=== PATIENT | male | born 1945 | race Caucasian/White ===

== ENCOUNTER 2016-09-27 09:58 | Emergency (ER) | payer MEDICARE, BC, MEDICAID ==
--- OUTSIDE RECORDS SUMMARY | 2016-09-27 10:42 | XMS REPORT | Continuity of Care Document ---
:1945 Author Organization [facility] ([facility]) Address [address] [place] [address] Phone [phone] Care Team Providers Name Role Phone Unavailable Primary Care Provider Unavailable Source Comments This disclosure is being made pursuant to the Care Everywhere program, applicable federal and state laws, and may not contain all informaitonavailable regarding this patient.[facility] ([facility]) Active Allergies and Adverse Reactions Not on File Current Medications Not on file Active Problems Not on file Social History Tobacco Use Types Packs/Day Years Used Date Never Assessed Plan of Care Health Maintenance Due Date Last Done Comments HCV Screening 1945 Hepatitis B Vaccine (1 of 3 - Primary Series) 1945 Tdap Vaccine 1956 Lipid Disorder Screening 1963 Td Vaccine 1963 Colonoscopy 1995 Prostate Cancer Screening 1995 Zoster Vaccine 2005 Pneumococcal Vaccine (1 of 2 - PCV13) 2010 Influenza Vaccine: Seasonal (#1) 12/10/2015 Results from Last 3 Months Not on file
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
[2016-09-27 13:57] VITALS: BP 136/56
== END 2016-09-27 13:53 ==
LOC: ER 09:58
PROC: 0JQ10ZZ Repair Face Subcutaneous Tissue and Fascia, Open Approach (ICD-10-PCS; principal; 2016-09-27)
DX: S01.81XA Laceration without foreign body of other part of head, initial encounter (principal); W19.XXXA Unspecified fall, initial encounter; Y92.128 Other place in nursing home as the place of occurrence of the external cause; E11.9 Type 2 diabetes mellitus without complications; Z79.4 Long term (current) use of insulin; Z87.440 Personal history of urinary (tract) infections; E78.5 Hyperlipidemia, unspecified; F32.9 Major depressive disorder, single episode, unspecified; F41.9 Anxiety disorder, unspecified; I50.9 Heart failure, unspecified; I10 Essential (primary) hypertension; F03.90 Unspecified dementia, unspecified severity, without behavioral disturbance, psychotic disturbance, mood disturbance, and anxiety

== ENCOUNTER 2017-01-30 08:47 | Emergency (ER) | payer MEDICARE, BC, MEDICAID ==
--- NOTE | 2017-01-30 08:56 | ERNOTE ---
Syncope ER HPI Stated Complaint: NOT FEELING WELL Time Seen by Provider: 01/30/17 08:47 Source: group home records Exam Limitations: dementia Immunizations: IMMUNIZATION HX Immunizations Up to Date Yes History of Influenza Vaccine Yes Hx Pneumococcal Vaccination Yes Allergies/Adverse Reactions: Allergies levofloxacin [From Levaquin] Adverse Reaction (Mild, Verified 09/27/16 10:05) Other Home Medications: HOME MEDICATIONS Acetaminophen [Tylenol] 650 mg PO Q6H PRN 03/01/13 [Last Taken Unknown] Bisacodyl [Dulcolax] 10 mg PO DAILY PRN 03/01/13 [Last Taken Unknown] Enalapril Maleate 10 mg PO DAILY 03/01/13 [Last Taken 03/01/15 07:30] Folic Acid 1 mg PO DAILY 03/01/13 [Last Taken 03/01/15 07:30] Furosemide [Lasix] 40 mg PO BID 03/01/13 [Last Taken 03/01/15 16:30] Metoprolol Succinate [Toprol Xl] 25 mg PO BID 03/01/13 [Last Taken 03/01/15 16: 30] Multivitamins [Multivitamin Moustapha] 1 cap PO DAILY 03/01/13 [Last Taken 07:30] Sennosides [Senna] 17.2 mg PO BID 03/01/13 [Last Taken Unknown] Simvastatin [Zocor] 20 mg PO HS 03/01/13 [Last Taken Unknown] glipiZIDE [Glucotrol] 10 mg PO DAILY 03/01/13 [Last Taken 03/01/15 07:00] LORazepam [Ativan] 1 mg PO QID PRN 03/01/15 [Last Taken Unknown] Magnesium Hydroxide [Milk Of Magnesia] 10 ml PO DAILY PRN 03/01/15 [Last Taken Unknown] QUEtiapine FUMARATE [Seroquel] 100 mg PO TID 03/01/15 [Last Taken Unknown] Methylcellulose [Fiber] 1,250 mg PO BID 09/26/15 [Last Taken Unknown] Potassium Chloride [Klor-Con 10] 10 meq PO DAILY 09/26/15 [Last Taken Unknown] Blood Sugar Diagnostic [Glucose Test Strip] 1 each [facility] #1 strip 09/29/15 [ Last Taken Unknown] Divalproex Sodium [Depakote] 250 mg PO TID 09/27/16 [Last Taken Unknown] FLUoxetine HCL [Prozac] 10 mg PO HS 09/27/16 [Last Taken Unknown] Insulin Aspart [Novolog] 1 units SC ACHS 09/27/16 [Last Taken Unknown] lamoTRIgine [Lamictal] 150 mg PO DAILY 09/27/16 [Last Taken Unknown] metFORMIN HCL [Glumetza] 1,000 mg PO BID 09/27/16 [Last Taken Unknown] Dulcolax Suppository 10 mg RC DAILY PRN 01/30/17 [Last Taken Unknown] LORazepam 0.5 mg PO TID 01/30/17 [Last Taken Unknown] Vitamin D3 2,000 unit PO DAILY 01/30/17 [Last Taken Unknown] - History of Present Illness Narrative: Patient is brought in by EMS from the care center for syncopal episode. The patient has severe intellectual disability and is unable to give a history, only answers yes and no. Per group home he was sitting at breakfast being fed when he became unresponsive, no choking, no seizure activity reported. Date (Duration): 01/30/17 Time (Timing): 08:00 Prior Episodes: Present: remote history - one year ago, no testing done at that time Symptoms prior to episode: Present: unknown Activity at time of episode: Present: sitting Character of event: Present: brief (seconds), became unresponsive. Absent: seizure activity observed Location of Injury: Present: none Current Symptoms: Present: back to normal Prior Treament: Reports: similar symptoms before. Denies: recently seen Review of Systems - Narrative Narrative: unable to obtain - Patient's Past Medical History Patient History - Medical: Anxiety, Diabetes Type 2 Insulin Dependent, Dementia , Depression, Osteoarthritis, Renal Failure, UTI'S, Other Patient History - Cardiac/Respiratory: CHF, Hypertension, Hyperlipidemia Patient History - Cancer: No Hx of Cancer Patient History - Surgical Procedures: Other Patient History - Other: None - Family History Mother Family History - Medical: , Other Family History - Cardiac/Respiratory: No pertinent hx Father Family History - Medical: , History Unknown Family History - Cardiac/Respiratory: History Unknown - Social History Living Situations: group home Abuse History: No History of abuse Psych History: Hx of Anxiety, Hx of Depression Alcohol Use: none Drug Use: none - Immunizations Immunizations Up to Date: Yes Hx Pneumococcal Vaccination: Yes History of Influenza Vaccine: Yes Physical Exam - Physical Exam General Appearance: Present: wd/wn, alert, no apparent distress Head Exam: Present: normal inspection, no evidence of injury Eye Exam: Normal inspection: bilateral, PERRL: bilateral Ears, Nose, Throat: Present: normal pharynx Neck: Present: normal inspection, nontender, supple Respiratory: Present: no respiratory distress, normal breath sounds, chest nontender, lungs clear, other - red skin homer over sternum (sternal rub?) no ecchymosis Cardiovascular/Chest: Present: regular rate, rhythm, no murmur, normal peripheral pulses Gastrointestinal/Abdominal: Present: nontender, nondistended, soft Extremity Exam: Present: normal inspection, no edema Neurological Exam: Present: alert, no motor/sensory deficits - grossly normal ( limited exam due mental disability) Skin Exam: Present: normal color, warm/dry ED Progress - Results and Orders Patient's Lab Results:: I have reviewed the patient's lab results. - Vital Signs Patient's Vital Signs:: I have reviewed the patient's vital signs. Vital Signs: Vital Signs 01/30/17 08:52 Temperature 36.9 C Pulse Rate 71 Respiratory 17 Rate Blood Pressure 112/52 O2 Sat by Pulse 94 Oximetry - EKG EKG: NSR, unchanged from - 05/2015, other - poor R progression, no accute changes EKG read: Interp. by me - Progress/Reassessment Chief Complaint: Syncopal Episode Progress Note-Subjective: 01/30/17 10:35 reviewed previous culture 02/2016 Ecoli, multi resistent, sensitive to nitrofurantoin Departure Clinical Impression: UTI (urinary tract infection), bacterial, Syncope and collapse - Departure [facility]position: [facility] Condition: Fair Referrals: Malachi Sanders MD [Primary Care Provider] -
[2017-01-30 09:19] LABS: Hematocrit 30.3 % (42.0-52.0); Hemoglobin 10.4 gm/dL (13.5-18.0); Mean Cell Volume 91.3 fl (78-100); Mean Corpuscular Hemoglobin 31.3 pg (27-31); Mean Corpuscular Hgb Conc 34.3 g/dl (32-36); Mean Platelet Volume 9.1 fl (6.0-9.5); Neutrophil # 5.6 K/mm3 (1.3-6.0); Neutrophil % 68.3 % (42-75.0); Platelet Count 257 K/mm3 (150-450); Red Blood Count 3.32 M/mm3 (4.7-6.0); Red Cell Distribution Width 13.1 % (11.5-14.0); White Blood Count 8.2 K/mm3 (4.0-10.5)
[2017-01-30 09:39] LABS: ALT 10 U/L (19-67); AST 6 U/L (0-48); Albumin * 3.1 gm/dl (3.4-5.0); Alkaline Phosphatase * 71 U/L (50-170); Anion Gap 11.2 mmol/L (6.8-13.8); BUN/Creatinine Ratio 13.4 (9.0-21.6); Bilirubin, Total 0.4 mg/dL (0.0-1.1); Blood Urea Nitrogen 22 mg/dL (6-23); Ca. Corrected For Albumin 9.1 mg/dL (8.4-10.2); Calcium * 8.7 mg/dL (7.9-10.9); Carbon Dioxide 31.9 mmol/L (24-32.6); Chloride 102 mmol/L (97-106); Glucose * 111 mg/dL (70-110); Potassium 4.1 mmol/L (3.4-4.6); Sodium 141 mmol/L (132-142); Total Protein 6.9 gm/dL (6.2-8.2); Troponin I Less than 0.017 ng/ml (0.00-0.10)
[2017-01-30 10:04] LABS: Urine Bilirubin Negative (NEGATIVE); Urine Ketone Negative (NEGATIVE); Urine Nitrite Negative (NEGATIVE); Urine Protein 15 mg/dL (NEGATIVE); Urine Urobilinogen Normal (NORMAL)
[2017-01-30 10:14] LABS: Urine Appearance Cloudy; Urine Bacteria 4+; Urine Blood 10 /ul (NEGATIVE); Urine Color Yellow; Urine RBC 0-5 /hpf (0-5)
[2017-01-30] MEDS ORDERED: NITROFURANTOIN/NITROFURAN MAC 100 MG CAPSULE PO ONE (10:22)
[2017-01-30] MEDS ORDERED: NITROFURANTOIN/NITROFURAN MAC 100 MG CAPSULE ONE (10:28)
[2017-01-30 11:44] VITALS: BP 113/51
== END 2017-01-30 11:52 ==
LOC: ER 08:47
PROC: 0T9B7ZZ Drainage of Bladder, Via Natural or Artificial Opening (ICD-10-PCS; principal; 2017-01-30)
DX: N39.0 Urinary tract infection, site not specified (principal); B96.89 Other specified bacterial agents as the cause of diseases classified elsewhere; R55 Syncope and collapse; Z87.440 Personal history of urinary (tract) infections; E11.9 Type 2 diabetes mellitus without complications; Z79.4 Long term (current) use of insulin

== ENCOUNTER 2017-02-14 09:39 | Emergency (ER) | payer MEDICARE, BC, MEDICAID ==
--- NOTE | 2017-02-14 10:30 | ERNOTE ---
Syncope ER HPI Date of Service: 02/14/17 Stated Complaint: ALT MENTAL STATUS Time Seen by Provider: 02/14/17 10:18 Source: other - Nursing report to ED nurse Immunizations: IMMUNIZATION HX Immunizations Up to Date Yes History of Influenza Vaccine More Information Required Hx Pneumococcal Vaccination More Information Required Allergies/Adverse Reactions: Allergies levofloxacin [From Levaquin] Adverse Reaction (Mild, Verified 02/14/17 09:46) Other Home Medications: HOME MEDICATIONS Acetaminophen [Tylenol] 650 mg PO Q6H PRN 03/01/13 [Last Taken Unknown] Bisacodyl [Dulcolax] 10 mg PO DAILY PRN 03/01/13 [Last Taken Unknown] Enalapril Maleate 10 mg PO DAILY 03/01/13 [Last Taken 03/01/15 07:30] Folic Acid 1 mg PO DAILY 03/01/13 [Last Taken 03/01/15 07:30] Furosemide [Lasix] 40 mg PO BID 03/01/13 [Last Taken 03/01/15 16:30] Metoprolol Succinate [Toprol Xl] 25 mg PO BID 03/01/13 [Last Taken 03/01/15 16: 30] Multivitamins [Multivitamin Moustapha] 1 cap PO DAILY 03/01/13 [Last Taken 07:30] Sennosides [Senna] 17.2 mg PO BID 03/01/13 [Last Taken Unknown] Simvastatin [Zocor] 20 mg PO HS 03/01/13 [Last Taken Unknown] glipiZIDE [Glucotrol] 10 mg PO DAILY 03/01/13 [Last Taken 03/01/15 07:00] LORazepam [Ativan] 1 mg PO QID PRN 03/01/15 [Last Taken Unknown] Magnesium Hydroxide [Milk Of Magnesia] 10 ml PO DAILY PRN 03/01/15 [Last Taken Unknown] QUEtiapine FUMARATE [Seroquel] 100 mg PO TID 03/01/15 [Last Taken Unknown] Methylcellulose [Fiber] 1,250 mg PO BID 09/26/15 [Last Taken Unknown] Potassium Chloride [Klor-Con 10] 10 meq PO DAILY 09/26/15 [Last Taken Unknown] Blood Sugar Diagnostic [Glucose Test Strip] 1 each [facility] #1 strip 09/29/15 [ Last Taken Unknown] Divalproex Sodium [Depakote] 250 mg PO TID 09/27/16 [Last Taken Unknown] FLUoxetine HCL [Prozac] 10 mg PO HS 09/27/16 [Last Taken Unknown] Insulin Aspart [Novolog] 1 units SC ACHS 09/27/16 [Last Taken Unknown] lamoTRIgine [Lamictal] 150 mg PO DAILY 09/27/16 [Last Taken Unknown] metFORMIN HCL [Glumetza] 1,000 mg PO BID 09/27/16 [Last Taken Unknown] Dulcolax Suppository 10 mg RC DAILY PRN 01/30/17 [Last Taken Unknown] LORazepam 0.5 mg PO TID 01/30/17 [Last Taken Unknown] Vitamin D3 2,000 unit PO DAILY 01/30/17 [Last Taken Unknown] - History of Present Illness Narrative: According to communication from [facility] nurse to ED nurse patient had a brief episode of being unresponsive for a few seconds. BP was low. On arrival he was alert. Patient can only tell me he does not have any pain when questioned. Review of Systems - Narrative Narrative: Unable to effectively communicate due to clinical status - Patient's Past Medical History Patient History - Medical: Anxiety, Diabetes Type 2 Insulin Dependent, Dementia , Depression, Osteoarthritis, Renal Failure, UTI'S, Other Patient History - Cardiac/Respiratory: CHF, Hypertension, Hyperlipidemia Patient History - Cancer: No Hx of Cancer Patient History - Surgical Procedures: Other Patient History - Other: None - Family History Mother Family History - Medical: , Other Family History - Cardiac/Respiratory: No pertinent hx Father Family History - Medical: , History Unknown Family History - Cardiac/Respiratory: History Unknown - Social History Living Situations: care home Abuse History: No History of abuse Psych History: Hx of Anxiety, Hx of Depression Smoking Status: Unknown if ever smoked Alcohol Use: none Drug Use: none - Immunizations Immunizations Up to Date: Yes Hx Pneumococcal Vaccination: More Information Required to Determine History of Influenza Vaccine: More Information Required to Determine Physical Exam - Physical Exam General Appearance: Present: wd/wn, alert Head Exam: Present: no evidence of injury Eye Exam: PERRL: bilateral, EOMI: bilateral Ears, Nose, Throat: Present: normal ENT inspection Neck: Present: normal inspection Respiratory: Present: no respiratory distress, normal breath sounds Cardiovascular/Chest: Present: regular rate, rhythm, no murmur Gastrointestinal/Abdominal: Present: normal bowel sounds, nontender, soft Back Exam: Present: normal inspection Extremity Exam: Present: normal inspection, pedal edema - trace Neurological Exam: Present: other - cannot cooperate with exam ED Progress - Results and Orders Patient's Lab Results:: I have reviewed the patient's lab results. - Vital Signs Patient's Vital Signs:: I have reviewed the patient's vital signs. Vital Signs: Vital Signs 02/14/17 09:40 Temperature 35.6 C L Pulse Rate 62 Respiratory 15 Rate Blood Pressure 125/52 O2 Sat by Pulse 96 Oximetry - X-Ray X-Ray #1 X-Ray: chest Interpretation: Reviewed by me - Progress/Reassessment Chief Complaint: Syncopal Episode Plan - Plan Plan: Return to [place] Depakote increase Macrobid 100 mg bid x 10 days Departure Clinical Impression: UTI (urinary tract infection) - Departure Disposition: [facility] Condition: Fair Instructions: Urinary Tract Infection, Adult, [id number] Additional Instructions: Increase depakote as written Start macrobid follow up by PCP
[2017-02-14 10:41] LABS: Hematocrit 35.4 % (42.0-52.0); Hemoglobin 11.8 gm/dL (13.5-18.0); Mean Cell Volume 92.9 fl (78-100); Mean Corpuscular Hgb Conc 33.3 g/dl (32-36); Mean Platelet Volume 9.5 fl (6.0-9.5); Neutrophil # 8.9 K/mm3 (1.3-6.0); Neutrophil % 76.4 % (42-75.0); Platelet Count 205 K/mm3 (150-450); Red Blood Count 3.81 M/mm3 (4.7-6.0); Red Cell Distribution Width 14.1 % (11.5-14.0); White Blood Count 11.6 K/mm3 (4.0-10.5)
[2017-02-14 10:58] LABS: ALT 12 U/L (19-67); AST 8 U/L (0-48); Albumin * 3.2 gm/dl (3.4-5.0); Alkaline Phosphatase * 75 U/L (50-170); Anion Gap 12.9 mmol/L (6.8-13.8); BUN/Creatinine Ratio 10.6 (9.0-21.6); Bilirubin, Total 0.4 mg/dL (0.0-1.1); Blood Urea Nitrogen 15 mg/dL (6-23); CRP 0.2 mg/dL (0.0-0.9); Ca. Corrected For Albumin 8.9 mg/dL (8.4-10.2); Calcium * 8.6 mg/dL (7.9-10.9); Carbon Dioxide 32.3 mmol/L (24-32.6); Chloride 102 mmol/L (97-106); Glucose * 94 mg/dL (70-110); Potassium 4.2 mmol/L (3.4-4.6); Sodium 143 mmol/L (132-142); Total Protein 6.7 gm/dL (6.2-8.2); Valproic Acid 49.9 mcg/mL (50.0-100.0)
[2017-02-14 10:59] LABS: Troponin I Less than 0.017 ng/ml (0.00-0.10)
[2017-02-14 12:48] LABS: Urine Appearance Slightly Cloudy; Urine Bilirubin Negative (NEGATIVE); Urine Color Yellow; Urine Ketone 5 mg/dL (NEGATIVE)
[2017-02-14 12:49] LABS: Urine Bacteria 1+; Urine Blood 10 /ul (NEGATIVE); Urine Nitrite Negative (NEGATIVE); Urine Protein Negative (NEGATIVE); Urine RBC 0-5 /hpf (0-5); Urine Urobilinogen Normal (NORMAL); Urine pH 7.5 pH (5.0-7.0)
[2017-02-14 13:21] VITALS: BP 123/64
== END 2017-02-14 13:45 ==
LOC: ER 09:39
DX: N39.0 Urinary tract infection, site not specified (principal)